=== PATIENT | male | born 1970 | race Asian ===

== ENCOUNTER 2022-04-13 08:58 | Outpatient (CLI) | payer BC, SELFPAY ==
[2022-04-13 09:08] LABS: Hematocrit 40.8 % (37.0-53.0); Hemoglobin* 13.6 gm/dL (13.5-17.5); Mean Corpuscular HGB Conc 33 gm/dL (32-36); Mean Corpuscular Hemoglobin 28 pg (26-34); Mean Corpuscular Volume 83 fL (80-100); Platelet Count* 249 K/uL (140-440); White Blood Count* 5.35 K/uL (4.50-11.00)
[2022-04-13 09:09] LABS: Slide Review Reflex No
[2022-04-13 13:59] LABS: Creatinine Urine 65.1 mg/dL
[2022-04-13 14:02] LABS: Microalbumin Creatinine Ratio 10 mg/g (0-30); Microalbumin Urine < 1 mg/dL
[2022-04-13 14:11] LABS: Albumin* 4.8 g/dL (3.3-5.0); Chloride* 106 mmol/L (96-114); Sodium* 141 mmol/L (135-149)
[2022-04-13 14:12] LABS: Potassium* 4.4 mmol/L (3.6-5.1)
[2022-04-13 14:13] LABS: Cholesterol* 148 mg/dL (90-199)
[2022-04-13 14:14] LABS: Alanine Aminotransferase* 52 U/L (4-50); Alkaline Phosphatase* 67 U/L (40-150); Aspartate Amino Transferase* 35 U/L (12-35); Bilirubin Total* 0.7 mg/dL (0.1-1.5); Blood Urea Nitrogen* 14 mg/dL (7-30); Carbon Dioxide* 26 mmol/L (20-32); Creatinine* 0.8 mg/dL (0.5-1.5); Estimated Glomerular Filt Rate 107 ml/min; Glucose* 95 mg/dL (60-115); Total Protein* 7.2 g/dL (6.0-8.3); Triglycerides* 72 mg/dL (40-149)
[2022-04-13 14:15] LABS: Calcium* 9.2 mg/dL (8.4-10.6); HDL Cholesterol* 60 mg/dL (>=40); LDL Cholesterol Calculated 74 mg/dL (<100)
== END 2022-04-13 08:59 | disposition home or self-care (01) ==
PROVIDERS: PCP Family Medicine; Visit Provider Family Medicine
DX: E78.5 Hyperlipidemia, unspecified (principal); K21.9 Gastro-esophageal reflux disease without esophagitis; R03.0 Elevated blood-pressure reading, without diagnosis of hypertension
CPT/HCPCS: 80053; 80061; 82043; 82570; 85027

== ENCOUNTER 2023-05-19 08:19 | Outpatient (CLI) | payer BC, SELFPAY ==
--- OUTSIDE RECORDS SUMMARY | 2023-05-19 08:25 | XMS_ITS | Encounter Summary ---
Author Name Unknown Organization [place] Address [address] [place] [id number] Care Team Providers Care Lsw Name Role Phone [facility] Primary Care Provider Encounter Details Date Type Department Care Team (Latest Contact Info) Description 07/29/2022 Travel Social History Tobacco Use Types Packs/Day Years Used Date Smoking Tobacco: Never Assessed Sex and Gender Information Value Date Recorded Sex Assigned at Not on file Gender Identity Not on file Sexual Orientation Not on file COVID-19 Exposure Response Date Recorded In the last 10 days, have yo u been in contact with someone who was confirmed or suspected to have Coronavirus/COVID-19? No / Unsure 07/29/2022 11:20 AM CDT documented as of this encounter Plan of Treatment Not on file documented as of this encounter Visit Diagnoses Not on filedocumented in this encounter Care Teams Lsw Relationship Specialty Start Date End Date [facility] [address] [place] [id number] PCP - General 07/29/22 documented as of this encounter
--- OUTSIDE RECORDS SUMMARY | 2023-05-19 08:25 | XMS_ITS | Clinical Summary ---
Author Name Unknown Organization [place] Address [address] [place] [id number] Care Team Providers Care Hospice Nurse Name Role Phone Clinic, [facility] Primary Care Provider Allergies No known active allergies Social History Tobacco Use Types Packs/Day Years Used Date Smoking Tobacco: Never Assessed Adolescent Education Answer Date Record ed Getting School Help Needed Not on file 01/21 Sex and Gender Information Value Date Recorded Sex Assigned at Not on file Gender Identity Not on file Sexual Orientation Not on file Last Filed Vital Signs Vital Sign Reading Time Taken Comments Blood Pressure 153/98 07/29/2022 11:33 AM CDT Pulse 94 07/29/2022 11:33 AM CDT Temperature 36.6 ??C (97.8 ??F) 07/29/2022 11:33 AM C DT Respiratory Rate 16 07/29/2022 11:33 AM CDT Oxygen Saturation 98% 07/29/2022 11:33 AM CDT Inhaled Oxygen Concentration - - Weight - - Height - - Body Mass Index - - Plan of Treatment Health Maintenance Due Date Last Done Comments ADVANCE CARE PLANNING 1970 ANNUAL REVIEW OF HM ORDERS 1970 CT COLONOGRAPHY 1970 FIT 1970 FLEX SIG 1970 HEPATITIS B IMMUNIZATION (1 of 3 - 3-dose series) 1970 YEARLY PREVENTIVE VISIT 1970 sDNA (Cologuard) 1970 HIV SCREENING 1985 HEPATITIS C SCREENING 1988 DTAP/TDAP/TD IMMUNIZATION (1 - Tdap) 11/23/1995 LIPID 2005 ZOSTER IMMUNIZATION (1 of 2) 2020 COVID-19 Vaccine () 12/23/2022 05/24/2022, 10/21/2021, 02/27/2021, Additional history exists INFLUENZA VACCINE (#1) 2022 2, 01/26/2021, 12/23/2020, Additional history exists PHQ-2 (once per calendar year) 2023 COLONOSCOPY 08/06/2029 08/07/2019 COLORECTAL CANCER SCREENING 08/06/2029 HPV IMMUNIZATION Aged Out No longer e ligible based on patient's age to complete this topic IPV IMMUNIZATION Aged Out No longer e ligible based on patient's age to complete this topic MENINGITIS IMMUNIZATION Aged Out No l onger eligible based on patient's age to complete this topic Pneumococcal Vaccine: Pediatrics (0 to 5 Years) and At-Risk Patients (6 to 64 Years) Aged Out No longer eligible based on patient's age to complete this topic RSV MONOCLONAL ANTIBODY Aged Out No l onger eligible based on patient's age to complete this topic Care Teams Hospice Nurse Relationship Specialty Start Date End Date Clinic, [address] [phone] PCP - General 07/29/22
--- OUTSIDE RECORDS SUMMARY | 2023-05-19 08:25 | XMS_ITS | Referral Summary ---
Author Name Unknown Organization [place] Address [address] [place] [id number] Care Team Providers Care Instructor Product Inspection Name Role Phone [facility] Primary Care Provider Allergies No known active [...] Mass Index - - Plan of Treatment Not on file Care Teams Instructor Product Inspection Relationship Specialty Start Date End Date [facility] [address] [place] [id number] [facility] - General 07/29/22
--- OUTSIDE RECORDS SUMMARY | 2023-05-19 08:25 | XMS_ITS | Encounter Summary ---
Author Name Unknown Organization [facility] Address [address] [place] [address] Care Team Providers Care Guidance And Control System Engineer Name Role Phone Clinic, [facility] Primary Care Provider Encounter Details Date Type Department Care Team (Late st Contact Info) Description 07/29/2022 6:14 PM CDT - 07/29/2022 7:58 PM CDT Emergency [facility] Emergency Dept [address] [place] [id number] Lenora Gray MD [facility] [address] [place] [address] Chest pain, unspecified type; Epigastric pain; Gastroesophageal reflux disease, unspecified whether esophagitis present Discharge Disposition: Home or Self Care Social History Tobacco Use Types Packs/Day Years [...] AM CDT documented as of this encounter Last Filed Vital Signs Vital Sign Reading Time Taken Comments Blood Pressure 153/98 07/29/2022 11:33 AM CDT Pulse 94 07/29/2022 11:33 AM CDT Temperature 36.6 ??C (97.8 ??F) 07/29/2022 11:33 AM C DT Respiratory Rate 16 07/29/2022 11:33 AM CDT Oxygen Saturation 98% 07/29/2022 11:33 AM CDT Inhaled Oxygen Concentration - - Weight - - Height - - Body Mass Index - - documented in this encounter Discharge Instructions * Discharge Instructions* Pamela Aldana PA-C - 07/29/2022 7:12 PM CDT We will call you if other labs come back abnormal Continue Nexium for at least 2 weeks, Tums and Pepcid as needed Follow up with primary care in 1 week (phone number provided for [facility]) Follow up with GI as needed for further evaluation and possible endoscopy * Attachments The following attachments cannot be sent through Care Everywhere. * GERD (Adult) (Luxembourger) documented in this encounter ED Notes * Abby Wu RN - 07/29/2022 7:56 PM CDT Pt declined refuset and vitals prior to discharge. * Carey Johnston RN - 07/29/2022 11:33 AM CDT Pt reports midsternal chest pain x1 week. Pt reports that he has been taking nexium which seems to help the pain. Pt reports that he has been experiencing this pain for several months, he stopped taking the nexium because his PCP told him to stop it and pain returned. Pt has seen [facility] for this painand was told he had reflux, but he has not had an endoscopy. Pt alert and oriented. pt adds that he also feels lightheaded at times, but he has not passed out. * Pamela Aldana PA-C - 07/29/2022 11:20 AM CDT History Chief Complaint: Abdominal and Chest Pain The history is provided by the patient. Pritesh Light is a 51 year old male with a history of reflux disease who presents with epigastric abdominal and slight chest pain for the past 10 days intermittently. Patient reports he has had consistent reflux symptoms for the past 6 to 8 months and he has been taking Nexium for it. He saw his PCP in April, who recommend he wean himself off of it. He was feeling very well 2 weeks ago, andthen a few days later he developed new abdominal cramping in the epigastric region. He thought it was maybe the Nexium, so he stopped taking it, but his symptoms worsened. He took Nexium again today to try to help. He is very worried about the pain, and endorses he was hyperventilating a bit on theway here, very worried something was really wrong. Denies fevers, vomiting, diarrhea, or bloody stools. Reports he has been burping a lot and had a decreased appetite. He has seen [facility] in [facility] but has never had an endoscopy. Denies shortness of breath, recent surgery or travel, or trauma. Independent Historian: None - Patient Only Review of External Notes: None ROS: Review of Systems Constitutional: Positive for appetite change. Negative for fever. Respiratory: Negative for shortness of breath. Cardiovascular: Positive for chest pain. Gastrointestinal: Positive for abdominal pain. Negative for blood in stool, diarrhea and vomiting. All other systems reviewed and are negative. Allergies: No Known Allergies Medications: Flonase Prednisone Simvastatin Solifenacin Past Medical History: Denies past medical history Past Surgical History: Sperm duct removal Social History: Presents alone PCP: No primary care provider on file. Physical Exam Patient Vitals for the past 24 hrs: BP Temp Temp src Pulse Resp SpO2 07/29/22 1133 (!) 153/98 97.8 ??F (36.6 ??C) Temporal 94 16 98 % Physical Exam Vital signs and nursing notes reviewed. General: Alert and oriented, no acute distress. Sitting on bench. Skin: Skin is warm and dry. No rashes, lesions, or erythema. No diaphoresis. HEENT: Head: Normocephalic, atraumatic. Facial features symmetric. Eyes: Conjunctiva pink, sclera white. EOMs grossly intact. Ears: Auricles without lesion, erythema, or edema. Nose: Symmetric with no discharge. Mouth and throat: Lips are moist with no lesions or edema, Buccal mucosa and tongue is pink and moist without lesions or exudate. Neck: Normal range of motion. No tracheal deviation. CV: Heart RRR with no murmurs or extra heart sounds. 2+ radial and tibialis posterior pulses bilaterally. No peripheral edema. Pulm/Chest: Chest wall expansion symmetric with no increased effort of breathing. Lungs clear and equal to auscultation bilaterally. Abd: Bowel sounds present and physiologic. Abdomen is soft and nontender to palpation in all 4 quadrants with no guarding or rebound. M/S: Moves all extremities spontaneously. Psych: Normal mood and affect. Behavior is normal. Emergency Department Course ECG ECG results from 07/29/22 EKG 12-lead, tracing only Value Systolic Blood Pressure Diastolic Blood Pressure Ventricular Rate 105 Atrial Rate 105 HI Interval 182 QRS Duration 102 QT 348 QTc 459 P Plato 56 R AXIS 60 T Plato 40 Interpretation ECG Sinus tachycardia Otherwise normal ECG No previous ECGs available Imaging: Chest XR, PA & LAT Final Result IMPRESSION: There are no acute infiltrates. The cardiac silhouette is not enlarged. Pulmonary vasculature is unremarkable. JULISSA CONDE MD Report per radiology Laboratory: Labs Ordered and Resulted from Time of ED Arrival to Time of ED Departure BASIC METABOLIC PANEL - Abnormal Result Value Sodium 142 Potassium 4.2 Chloride 104 Carbon Dioxide (CO2) 26 Anion Gap 12 Urea Nitrogen 17.0 Creatinine 0.96 Calcium 9.5 Glucose 101 (*) GFR Estimate >90 TROPONIN T, HIGH SENSITIVITY - Normal Troponin T, High Sensitivity 7 CBC WITH PLATELETS AND DIFFERENTIAL WBC Count 5.7 RBC Count 4.99 Hemoglobin 13.8 Hematocrit 42.1 MCV 84 MCH 27.7 MCHC 32.8 RDW 11.8 Platelet Count 256 % Neutrophils 63 % Lymphocytes 29 % Monocytes 7 % Eosinophils 1 % Basophils 0 % Immature Granulocytes 0 NRBCs per 100 WBC 0 Absolute Neutrophils 3.5 Absolute Lymphocytes 1.7 Absolute Monocytes 0.4 Absolute Eosinophils 0.1 Absolute Basophils 0.0 Absolute Immature Granulocytes 0.0 Absolute NRBCs 0.0 LIPASE HEPATIC FUNCTION PANEL Emergency Department Course & Assessments: Interventions: Medications lidocaine (viscous) (XYLOCAINE) 2 % 15 mL, alum & mag hydroxide-simethicone (MAALOX) 15 mL GI Cocktail (30 mLs Oral $Given 07/29/22 1850) Assessments: 1834 I obtained history and examined the patient, as above. 1915 I rechecked the patient and updated them on findings. Amenable to discharge. Independent Interpretation (X-rays, CTs, rhythm strip): I reviewed the CXR and appreciated no acute pathology. Consultations/Discussion of Management or Tests: None Social Determinants of Health affecting care: None Disposition: The patient was discharged to home. Impression & Plan [facility] Diagnoses: None Medical Decision Making: Pritesh Light is a 51 year old male who presents for evaluation of epigastric discomfort and substernal CP. See HPI. VSS. Patient does have significant history of Reflux Disease. His presentationand findings are consistent with this. ACS was considered, however ECG showed no signs of acute ischemic injury or infarct. Troponin is 7, and his pain has been present for ~1 week; I highly doubt myocardial injury at this time. Pulmonary Embolism was considered, however he is not hypoxic, dyspneic, and he does not have pleuritic chest pain, and therefore PE is very unlikely. CBC and BMP were unremarkable. Lipase and LFTs normal. Exam was benign and therefore I doubt sinister intra- abdominal etiology of symptoms. His history of belching and improvement with PPI is consistent with an exacerbation of the patient's GERD. Encouraged him to resume Nexium and take Tums and/or Maalox as needed. Recommended follow-up with primary care in approximately 1 week as well as possible appointment with GI as he has not seen them in some time. Instructed patient to return to the emergency department should he develop shortness of breath, chest pain, intractable vomiting, fever, or worsening symptoms of any kind. Patient can discharge home at the time is agreeable to plan. I staffed this patient with Dr. Gray who is agreeable to the assessment and plan above. Critical Care time: was 0 minutes for this patient excluding procedures. Diagnosis: ICD-10-CM 1. Chest pain, unspecified type R07.9 2. Epigastric pain R10.13 3. Gastroesophageal reflux disease, unspecified whether esophagitis present K21.9 Scribe Disclosure: I, Sue Mendoza, am serving as a scribe at 6:33 PM on 07/29/2022 to document services personally performed by Pamela Aldana PA-C based on my observations and the provider's statements to me. Pamela Aldana PA-C on 07/29/2022 at 10:44 PM Pamela Aldana PA-C 07/29/22 [id number] * Lenora Gray MD - 07/29/2022 11:20 AM CDT ED ATTENDING PHYSICIAN NOTE: I evaluated this patient in conjunction with Pamela Aldana PA-C I have participated in the care ofthe patient and personally performed weeks elements of the history, exam, and medical decision making. HPI: Pritesh Light is a 51 year old male who presents with epigastric pain and chest pain for the past 10 days. Pain has been intermittent. He states that he has had reflux symptoms over the past 6-8 months and has been using Nexium. He notes that he stopped the Nexium about two weeks ago, which then made his symptoms worse, so he took it today. No fever, vomiting, diarrhea or blood in stools. He has been belching a large amount and has decreased appetite. Independent Historian: None - Patient Only Review of External Notes: None EXAM: Gen: alert HEENT: PERRL, oropharynx clear Neck: normal ROM CV: RRR, no murmurs, 2+ distal pulses in all 4 extremities Chest: no tenderness over the chest wall Pulm: breath sounds equal, lungs clear Abd: Soft, mild epigastric tenderness Back: no evidence of injury MSK: no lower extremity edema, no calf tenderness Skin: no rash Neuro: alert, appropriate conversation and interaction Assessments: 1900 I obtained history and examined the patient, as above. Amenable to discharge. ECG ECG taken at 1124, ECG read at 1852 Sinus tachycardia Rate 105 bpm. HI interval 182 ms. QRS duration 102 ms. QT/QTc 348/459 ms. P-R-T axes 56 60 40. Independent Interpretation (X-rays, CTs, rhythm strip): None Consultations/Discussion of Management or Tests: None Social Determinants of Health affecting care: None MEDICAL DECISION MAKING/ASSESSMENT AND PLAN: Pritesh Light is a 51 year old male who presents with chest pain. The work up in the Emergency Department is negative. I considered a broad differential diagnosis in this patient including life-threatening etiologies such as acute coronary syndrome, myocardial infarction, pulmonary embolism, acute aortic dissection, myocarditis, pericarditis, acute valvular insufficiency amongst others. Othercauses considered for this patient included pneumonia, pneumothorax, chest wall source, pericarditis, pleurisy, esophageal spasm, etc. No serious etiology for the chest pain were detected today during this visit. Likely this is exacerbation of the patient's GERD. Recommended resume Nexium. Tums or Maalox as needed. Follow-up closely with primary care. Return for new or worsening symptoms. DIAGNOSIS: ICD-10-CM 1. Chest pain, unspecified type R07.9 2. Epigastric pain R10.13 3. Gastroesophageal reflux disease, unspecified whether esophagitis present K21.9 DISPOSITION: The patient was discharged to home. Scribe Disclosure: I, Sue Mendoza, am serving as a scribe at 6:55 PM on 07/29/2022 to document services personally performed by Lenora Gray MD based on my observations and the provider's statements to me. Lenora Gray MD 07/29/2022 [facility] EMERGENCY DEPT Lenora Gray MD 07/29/222137 documented in this encounter Plan of Treatment Not on file documented as of this encounter Procedures Procedure Name Priority Date/Time Associated Diagnosis Comments XR CHEST 2 VIEWS STAT 07/29/2022 3:24 PM CDT EXTRA TUBE STAT 07/29/2022 12:20 PM CDT EXTRA RED TOP TUBE STAT 07/29/2022 12 :20 PM CDT EXTRA BLUE TOP TUBE STAT 07/29/2022 1 2:20 PM CDT CBC WITH PLATELETS AND DIFFERENTIAL STAT 07/29/2022 12:20 PM CDT TROPONIN T, HIGH SENSITIVITY STAT 07/29/2022 12:20 PM CDT CBC WITH PLATELETS & DIFFERENTIAL STAT 07/29/2022 12:20 PM CDT LIPASE Add-On 07/29/2022 12:20 PM CDT HEPATIC FUNCTION PANEL Add-On 07/29/2022 12:20 PM CDT BASIC METABOLIC PANEL STAT 07/29/2022 12:20 PM CDT EKG 12-LEAD, TRACING ONLY STAT 07/29/2022 11:24 AM CDT documented in this encounter Results * Chest XR, PA & LAT (07/29/2022 3:24 PM CDT) Anatomical Region Laterality Modality Chest Computed Radiogr aphy Impressions 07/29/2022 3:55 PM CDT IMPRESSION: There are no acute infiltrates. The cardiac silhouette is not enlarged. Pulmonary vasculature is unremarkable. JULISSA CONDE MD Narrative 07/29/2022 3:55 PM CDT CHEST TWO VIEWS 07/29/2022 3:24 PM HISTORY: Chest pain. COMPARISON: None. Procedure Note Julissa Conde MD - 07/29/2022 CHEST TWO VIEWS 07/29/2022 3:24 PM HISTORY: Chest pain. COMPARISON: None. IMPRESSION: There are no acute infiltrates. The cardiac silhouette is not enlarged. Pulmonary vasculature is unremarkable. JULISSA CONDE MD Lenora Gray MD IMG DIAG NOSTIC IMAGING ORDERABLES * Hepatic panel (07/29/2022 12:20 PM CDT) Protein Total 7.2 6.4 - 8.3 g/dL 07/29/2022 7:32 PM CDT [facility] Albumin 4.8 3.5 - 5.2 g/dL 07/29/2022 7:32 PM CDT [facility] Bilirubin Total 0.3 <=1.2 mg/dL 07/29/2022 7:32 PM CDT [facility] Alkaline Phosphatase 74 40 - 129 U/L 07/29/2022 7:32 PM CDT [facility] AST 31 10 - 50 U/L 07/29/2022 7:32 PM CDT [facility] ALT 36 10 - 50 U/L 07/29/2022 7:32 PM CDT [facility] Bilirubin Direct <0.20 0.00 - 0.30 mg/dL 07/29/2022 7:32 PM CDT [facility] Blood STRUCTURE OF RIGHT UPPER LIMB / Unknown Venipuncture / Unknown 07/29/2022 12:20 PM CDT 07/29/2022 12:36 PM CDT Pamela Aldana PA-C LAB - BLOOD ORDERA BLES Performing Organization Address City/[facility]/ZIP Co de Phone Number [facility] [address] Lab (1st floor, no room number) [place] [id number], [facility] [phone] * Lipase (07/29/2022 12:20 PM CDT) Lipase 22 13 - 60 U/L 07/29/2022 7:32 PM CDT [facility] Blood STRUCTURE OF RIGHT UPPER LIMB / Unknown Venipuncture / Unknown 07/29/2022 12:20 PM CDT 07/29/2022 12:36 PM CDT Pamela Aldana PA-C LAB - BLOOD ORDERA BLES Performing Organization Address [facility]/ZIP Co de Phone Number [facility] [address] Lab (1st floor, no room number) [place] [id number], [facility] [phone] * Extra Red Top Tube (07/29/2022 12:20 PM CDT) Hold Specimen JIC 07/29/2022 1:47 PM CDT [facility] Blood STRUCTURE OF RIGHT UPPER LIMB / Unknown Venipuncture / Unknown 07/29/2022 12:20 PM CDT 07/29/2022 12:36 PM CDT Lenora Gray MD LAB - BL OOD ORDERABLES [facility] Lab [address] Lab (1st floor, no room number) [place] [address], [facility] [phone] * Extra Blue Top Tube (07/29/2022 12:20 PM CDT) Hold Specimen JIC 07/29/2022 1:47 PM CDT [facility] Blood STRUCTURE OF RIGHT UPPER LIMB / Unknown Venipuncture / Unknown 07/29/2022 12:20 PM CDT 07/29/2022 12:36 PM CDT Lenora Gray MD LAB - BL OOD ORDERABLES LABORATORY [facility] Acute Care Lab [address] Lab (1st floor, no room number) [place] [address], [facility] [phone] * CBC with platelets and differential (07/29/2022 12:20 PM CDT) WBC Count 5.7 4.0 - 11.0 10e3/uL 07/29/2022 12:50 PM CDT [facility] RBC Count 4.99 4.40 - 5.90 10e6/uL 07/29/2022 12:50 PM CDT [facility] Hemoglobin 13.8 13.3 - 17.7 g/dL 07/29/2022 12:50 PM CDT [facility] Hematocrit 42.1 40.0 - 53.0 % 07/29/2022 12:50 PM CDT [facility] MCV 84 78 - 100 fL 07/29/2022 12:50 PM CDT [facility] MCH 27.7 26.5 - 33.0 pg 07/29/2022 12:50 PM CDT [facility] MCHC 32.8 31.5 - 36.5 g/dL 07/29/2022 12:50 PM CDT [facility] RDW 11.8 10.0 - 15.0 % 07/29/2022 12:50 PM CDT [facility] Platelet Count 256 150 - 450 10e3/uL 07/29/2022 12:50 PM CDT [facility] % Neutrophils 63 % 07/29/2022 12:50 PM CDT [facility] % Lymphocytes 29 % 07/29/2022 12:50 PM CDT [facility] % Monocytes 7 % 07/29/2022 12:50 PM CDT [facility] % Eosinophils 1 % 07/29/2022 12:50 PM CDT [facility] % Basophils 0 % 07/29/2022 12:50 PM CDT [facility] % Immature Granulocytes 0 % 07/29/2022 12:50 PM CDT [facility] NRBCs per 100 WBC 0 <1 /100 023 12:50 PM CDT [facility] Absolute Neutrophils 3.5 1.6 - 8.3 10e3/uL 07/29/2022 12:50 PM CDT [facility] Absolute Lymphocytes 1.7 0.8 - 5.3 10e3/uL 07/29/2022 12:50 PM CDT [facility] Absolute Monocytes 0.4 0.0 - 1.3 10e3/uL 07/29/2022 12:50 PM CDT [facility] Absolute Eosinophils 0.1 0.0 - 0.7 10e3/uL 07/29/2022 12:50 PM CDT [facility] Absolute Basophils 0.0 0.0 - 0.2 10e3/uL 07/29/2022 12:50 PM CDT [facility] Absolute Immature Granulocytes 0.0 <=0.4 10e3/uL 07/29/2022 12:50 PM CDT [facility] Absolute NRBCs 0.0 10e3/uL 07/29/2022 12:50 PM CDT [facility] Blood STRUCTURE OF RIGHT UPPER LIMB / Unknown Venipuncture / Unknown 07/29/2022 12:20 PM CDT 07/29/2022 12:36 PM CDT Lenora Gray MD LAB - BL OOD ORDERABLES [facility] Lab [address] Lab (1st floor, no room number) [place] [address], [place] [phone] * Troponin T, High Sensitivity (now) (07/29/2022 12:20 PM CDT) Troponin T, High Sensitivity 7 <=22 ng/L 07/29/2022 1:20 PM CDT [facility] Comment: Either a High Sensitivity Troponin T baseline (0 hours) value = 100 ng/L, or an increase in High Sensitivity Troponin T = 7 ng/L at 2 hours compared to 0 hours (2-0 hours), suggests myocardial injury, and urgent clinical attention is required. ?? If the 2-0 hours increase is <7 ng/L, a High Sensitivity Troponin T result above gender-specific reference ranges warrants further evaluation. Recommendations for further evaluation include correlation with clinical decision-making tool (e.g., HEART), a 3rd High Sensitivity Troponin T test 2 hours after the 2nd (a 20% change from baseline would represent concern), admission for observation, close PCC/cardiology follow-up, or urgent outpatient provocative testing. Blood STRUCTURE OF RIGHT UPPER LIMB / Unknown Venipuncture / Unknown 07/29/2022 12:20 PM CDT 07/29/2022 12:36 PM CDT Lenora Gray MD LAB - BL OOD ORDERABLES LABORATORY [facility] Acute Care Lab [address] Lab (1st floor, no room number) [place] [address], [facility] [phone] * (ABNORMAL) Basic metabolic panel (BMP) (07/29/2022 12:20 PM CDT) [facility] Sodium 142 136 - 145 mmol/L 07/29/2022 2:06 PM CDT LABORATORY Potassium 4.2 3.4 - 5.3 mmol/L 07/29/2022 2:06 PM CDT LABORATORY Chloride 104 98 - 107 mmol/L 07/29/2022 2:06 PM CDT LABORATORY Carbon Dioxide (CO2) 26 22 - 29 mmol/L 07/29/2022 2:06 PM CDT LABORATORY Anion Gap 12 7 - 15 mmol/L 07/29/2022 2:06 PM CDT LABORATORY Urea Nitrogen 17.0 6.0 - 20.0 mg/dL 07/29/2022 2:06 PM CDT [facility] Creatinine 0.96 0.67 - 1.17 mg/dL 07/29/2022 2:06 PM CDT [facility] Calcium 9.5 8.6 - 10.0 mg/dL 07/29/2022 2:06 PM CDT [facility] Glucose 101(H) 70 - 99 mg/dL 07/29/2022 2:06 PM CDT [facility] GFR Estimate >90 >60 mL/min/1.7 3m2 07/29/2022 2:06 PM CDT [facility] Comment:eGFR calculated usin 2020 CKD-EPI equation. Blood STRUCTURE OF RIGHT UPPER LIMB / Unknown Venipuncture / Unknown 07/29/2022 12:20 PM CDT 07/29/2022 12:36 PM CDT Lenora Gray MD LAB - BL OOD ORDERABLES LABORATORY [facility] Acute Care Lab [address] Lab (1st floor, no room number) [place] [address] [phone] * EKG 12-lead, tracing only (07/29/2022 11:24 AM CDT) Systolic Blood Pressure mmHg RADIOLOGY RESULTS Diastolic Blood Pressure mmHg RADIOLOGY RESULTS Ventricular Rate 105 BPM RAD IOLOGY RESULTS Atrial Rate 105 BPM RADIOLOG Y RESULTS HI Interval 182 ms RADIOLOG Y RESULTS QRS Duration 102 ms RADIOLO GY RESULTS QT 348 ms RADIOLOGY RESULTS QTc 459 ms RADIOLOGY RESULTS P Plato 56 degrees RADIOLOGY RESULTS R AXIS 60 degrees RADIOLOGY RESULTS T Plato 40 degrees RADIOLOGY RESULTS Interpretation ECG Sinus tachycardia Otherwise normal ECG No previous ECGs available RADIOLOGY RESULTS 07/29/2022 11:2 4 AM CDT 07/29/2022 11:38 AM CDT Lenora Gray MD ECG ORDE RABLES RADIOLOGY RESULTS documented in this encounter Visit Diagnoses Diagnosis Chest pain, unspecified type Epigastric pain Abdominal pain, epigastric Gastroesophageal reflux disease, unspecified whether esophagitis present documented in this encounter Administered Medications Inactive Administered Medications - up to 3 most recent administrations Medication Order MAR Action Action Date Dose Rate Site lidocaine (viscous) (XYLOCAINE) 2 % 15 mL, alum & mag hydroxide-simethicone (MAALOX) 15 mL GI Cocktail 30 mL, Oral, ONCE, On Mon07/29/22 at 1850, For 1 dose $Given 07/29/2022 6:50 PM CDT 30 mLs documented in this encounter Active and Recently Administered Medications Times are shown in CDT. Scheduled Medication Order 07/27/2022 07/28/2022 07/29/2022 lidocaine (viscous) (XYLOCAINE) 2 % 15 mL, alum & mag hydroxide-simethicone (MAALOX) 15 mL GI Cocktail (COMPLETED) 30 mL, Oral, ONCE, On Mon07/29/22 at 1850, For 1 dose 1850 ($Given - Provi yeimy: Lety Deng RN) documented in this encounter Care Teams Guidance And Control System Engineer Relationship Specialty Start Date End Date [facility], [address] [address] PCP - General 07/29/22 documented as of this encounter
== END 2023-05-19 08:20 | disposition home or self-care (01) ==
PROVIDERS: PCP Family Medicine; Visit Provider Physician Assistant Medical
DX: R10.9 Unspecified abdominal pain (principal); E78.5 Hyperlipidemia, unspecified
CPT/HCPCS: 80053; 80061; 82465

== ENCOUNTER 2023-05-30 07:20 | Outpatient (CLI) | payer BC, SELFPAY ==
--- OUTSIDE RECORDS SUMMARY | 2023-05-31 10:52 | XMS_ITS | Encounter Summary ---
Author Name Unknown Organization [facility] Address [address] [place] [id number] Care Team Providers Care Dock Supervisor Name Role Phone [facility] Primary Care Provider Encounter Details Date [...] on filedocumented in this encounter Care Teams Dock Supervisor Relationship Specialty Start Date End Date [facility] [address] [place] [address] PCP - General 07/29/22 documented as of this encounter
--- OUTSIDE RECORDS SUMMARY | 2023-05-31 10:52 | XMS_ITS | Clinical Summary ---
Author Name Unknown Organization [facility] Address [address] [place] [address] Care Team Providers Care Insole Channeler Name Role Phone Clinic, [facility] Primary Care Provider Allergies No known active [...] DTAP/TDAP/TD IMMUNIZATION (1 - Tdap) 11/23/1995 LIPID 2010 ZOSTER IMMUNIZATION (1 of 2) 2020 COVID-19 Vaccine (6 - 2023-24 season) 2022 05/24/2022, 10/21/2021, 02/27/2021, Additional history exists INFLUENZA VACCINE (#1) 2022 2, 01/26/2021, 12/23/2020, Additional history exists PHQ-2 (once per calendar year) 2023 GLUCOSE 07/29/2025 07/29/2022 COLONOSCOPY 08/06/2029 08/07/2019 COLORECTAL CANCER SCREENING 08/06/2029 [...] age to complete this topic Care Teams Insole Channeler Relationship Specialty Start Date End Date [facility], [address] [address] PCP - General 07/29/22
--- OUTSIDE RECORDS SUMMARY | 2023-05-31 10:52 | XMS_ITS | Referral Summary ---
Author Name Unknown Organization [place] Address [address] [place] [address] Care Team Providers Care Lease Examiner Name Role Phone [facility] Primary Care Provider Allergies No known active [...] of Treatment Not on file Care Teams Lease Examiner Relationship Specialty Start Date End Date [facility] [address] [place] [address] [facility] - General 07/29/22
--- OUTSIDE RECORDS SUMMARY | 2023-05-31 10:52 | XMS_ITS | Encounter Summary ---
Author Name Unknown Organization [place] Address [address] [place] [address] Care Team Providers Care Sheather Name Role Phone Clinic, [facility] Primary Care Provider Encounter Details Date Type Department Care Team (Late st Contact Info) Description 07/29/2022 6:14 PM CDT - 07/29/2022 7:58 PM CDT Emergency [facility] Emergency Dept [address] [place] [phone] Lenora Gray MD [facility] [address] [place] [address] Chest pain, unspecified type; Epigastric pain; Gastroesophageal [...] in 1 week (phone number provided for [facility]) Follow up with GI as needed for further evaluation and possible endoscopy * Attachments The following attachments cannot be sent through Care Everywhere. * GERD (Adult) ([place] Citizen) documented in this encounter ED Notes * [...] it and pain returned. Pt has seen [facility] for this painand was told he had [...] had a decreased appetite. He has seen [place] [facility] in [facility] but has never had an endoscopy. Denies [...] Pressure Ventricular Rate 105 Atrial Rate 105 NV Interval 182 QRS Duration 102 QT 348 QTc 459 P Morgan 56 R AXIS 60 T Morgan 40 Interpretation ECG Sinus tachycardia Otherwise normal [...] was discharged to home. Impression & Plan [facility] Diagnoses: None Medical Decision Making: Pritesh Light [...] at 10:44 PM Pamela Aldana PA-C 07/29/22 0989 * Lenora Gray MD - 07/29/2022 11:20 [...] at 1852 Sinus tachycardia Rate 105 bpm. NV interval 182 ms. QRS duration 102 ms. [...] statements to me. Lenora Gray MD 07/29/2022 [facility] EMERGENCY DEPT Lenora Gray MD 07/29/222137 documented [...] - BLOOD ORDERA BLES Performing Organization Address City/[facility] [place]/ZIP Co de Phone Number [facility] [address] Lab (1st floor, no room number) [place] [phone], [facility] [phone] * Lipase (07/29/2022 12:20 PM CDT) Lipase 22 13 - 60 U/L 07/29/2022 7:32 PM CDT [facility] Blood STRUCTURE OF RIGHT UPPER LIMB / Unknown Venipuncture / Unknown 07/29/2022 12:20 PM CDT 07/29/2022 12:36 PM CDT Pamela Aldana PA-C LAB - BLOOD ORDERA BLES Performing Organization Address [facility] [place]/ZIP Co de Phone Number [facility] [address] Lab (1st floor, no room number) [place] [phone], [facility] [phone] * Extra Red Top Tube (07/29/2022 12:20 PM CDT) Hold Specimen JIC 07/29/2022 1:47 PM CDT [facility] Blood STRUCTURE OF RIGHT UPPER LIMB / Unknown Venipuncture / Unknown 07/29/2022 12:20 PM CDT 07/29/2022 12:36 PM CDT Lenora Gray MD LAB - BL OOD ORDERABLES [facility] Acute Care Lab [address] Lab (1st floor, no room number) [place] [address], [facility] [phone] * Extra Blue Top Tube (07/29/2022 12:20 PM CDT) Hold Specimen JIC 07/29/2022 1:47 PM CDT [facility] Blood STRUCTURE OF RIGHT UPPER LIMB / Unknown Venipuncture / Unknown 07/29/2022 12:20 PM CDT 07/29/2022 12:36 PM CDT Lenora Gray MD LAB - BL OOD ORDERABLES LABORATORY [facility] Acute Care Lab [address] Lab (1st floor, no room number) [place] [address], [facility] [phone] * CBC with platelets and differential (07/29/2022 [...] LAB - BL OOD ORDERABLES [facility] Acute Care Lab [address] Lab (1st floor, no room number) [place] [address], [place] [phone] * Troponin T, High Sensitivity (now) (07/29/2022 [...] MD LAB - BL OOD ORDERABLES LABORATORY [facility] Acute Care Lab [address] Lab (1st floor, no room number) [place] [address], [facility] [phone] * (ABNORMAL) Basic metabolic panel (BMP) (07/29/2022 12:20 PM CDT) [facility] Sodium 142 136 - 145 mmol/L 07/29/2022 [...] MD LAB - BL OOD ORDERABLES LABORATORY [facility] Acute Care Lab [address] Lab (1st floor, no room number) [place] [address] [phone] * EKG 12-lead, tracing only (07/29/2022 11:24 AM CDT) Systolic Blood Pressure mmHg RADIOLOGY RESULTS Diastolic Blood Pressure mmHg RADIOLOGY RESULTS Ventricular Rate 105 BPM RAD IOLOGY RESULTS Atrial Rate 105 BPM RADIOLOG Y RESULTS NV Interval 182 ms RADIOLOG Y RESULTS QRS Duration 102 ms RADIOLO GY RESULTS QT 348 ms RADIOLOGY RESULTS QTc 459 ms RADIOLOGY RESULTS P Morgan 56 degrees RADIOLOGY RESULTS R AXIS 60 degrees RADIOLOGY RESULTS T Morgan 40 degrees RADIOLOGY RESULTS Interpretation ECG Sinus [...] RN) documented in this encounter Care Teams Sheather Relationship Specialty Start Date End Date [facility], [address] [address] PCP - General 07/29/22 documented as of this encounter
== END 2023-05-30 07:21 | disposition home or self-care (01) ==
LOC: NFLDREF 05-31 10:42
PROVIDERS: PCP Family Medicine; Referring Provider Family Medicine; Visit Provider Family Medicine
DX: E78.5 Hyperlipidemia, unspecified (principal)
CPT/HCPCS: 80061

== ENCOUNTER 2023-11-26 09:13 | Emergency (ER) | payer BC, SELFPAY ==
[2023-11-26 09:29] VITALS: BP 137/98; PULSE 87; RESP 18; TEMP 36.4; O2SAT 98; BMI 25.8
[2023-11-26 10:00] VITALS: BP 132/87; PULSE 80; RESP 16; O2SAT 96
--- OUTSIDE RECORDS SUMMARY | 2023-11-26 10:11 | XMS_ITS | Continuity of Care Document ---
Author Organization [facility] Address [address] [address] [place] [address] Phone Care Team Providers Care Informatics Nurse Specialist Name Role Phone Alisha Caldera CRNA Unavailable Unavailable Allergies, Adverse Reactions, Alerts Substance Reaction Status Criticality No Known Allergies Active No Inform ation Medications Medication Instructions Dosage Effective Dates (start - stop) Status Comments Vesicare 5 mg tablet take 1 tablet by oral route every day 5 MG - Active simvastatin 20 mg tablet take 1 tablet by oral route every day in the evening 20 MG - Active NEXIUM (unknown strength) take 1 capsule by oral route every day Not Available - Active Procedures Procedure Date Ugi Endo; Dx W/wo Collec Specm 23 Established Level 4 Offic/outpt E&m [facility] Advance Directives Directive Yes / No Effective Date File Name No Information Encounters Encounter Description Practice Location Reason(s) For Visit Diagnoses Date Provider Providers Copied on Encounter [facility] [place], [address] [address], [place], [id number], [place] tel:[phone] [facility] No Information 3 Werner Brito. [address] [facility], [facility] [address], [place], [id number] , [place]. tel:[phone] Referring Provider: Nadeen Choi, [address] [facility] [address], [place], [address] . tel:[phone] [facility] [place], [address] [address], [place], [id number], [place] tel:[phone] [facility] GI Symptoms or Concerns (chief complaint) Chronic GERDUnspecified abdominal painHeartburnHeartb urn 3 Yesenia Senior. [address] [facility] [address], [address], [place], [id number] , [place]. tel: [phone] Established Level 4 [facility], [address] [address], [place], [id number], [place] tel:[phone] [facility] GI Symptoms or Concerns (chief complaint) Chronic GERD 3 Hardy Mota. [address] [facility] [address], [address], [place], [id number] , [place]. tel: [phone] Referring Provider: Referral Self, USE FOR SELF REFERRALS. [facility], [address] [address], [place], [id number], [place] tel:[phone] [facility] GI Symptoms or Concerns (chief complaint) No Information 3 Hardy Mota. [address] [facility], [address], [place], [id number] , [place]. tel: [phone] Offic/outpt E&m [facility], [address] [address], [place], [id number], [place] tel:[phone] [facility] GI Symptoms or Concerns (chief complaint) Gastroesophageal reflux disease, unspecified whether esophagitis present 1 Vinita Wallace . [address] [facility] [address], [address], [place], [id number] , [place]. tel: [phone] [facility], [address] [address], [place], [id number], [place] tel:[phone] [facility] No Information 1 Zahra Ricci. [address] [facility] [address], [address], [place], [place], [id number] , [place]. tel: [phone] Family History Family Member Type Diagnosis Age At Onset No Information Immunizations Vaccine Date Status Comments SARS-COV-2 (COVID-19) vaccin e, mRNA, spike protein, LNP, bivalent booster, preservative free, 30 mcg/0.3 mL dose, nathan-sucrose formulation administered Note: [facility] bi-d irectional interface ; Source: Other Registry Seasonal, quadrivalent, recombinant, injectable influenza vaccine, preservative free administered Note: [facility] bi-direct ional interface ; Source: Other Registry SARS-COV-2 (COVID-19) vaccin e, mRNA, spike protein, LNP, preservative free, 30 mcg/0.3mL dose, nathan-sucrose formulation administered Note: M[facility] C bi- directional interface ; Source: Other Registry SARS-COV-2 (COVID-19) vaccin e, mRNA, spike protein, LNP, preservative free, 30 mcg/0.3mL dose administered Note: [facility] bi-direct ional interface ; Source: Other Registry Influenza administered Note: [facility] bi-d irectional interface ; Source: Other Registry SARS-COV-2 (COVID-19) vaccin e, mRNA, spike protein, LNP, preservative free, 30 mcg/0.3mL dose administered Note: [facility] bi-direct ional interface ; Source: Other Registry SARS-COV-2 (COVID-19) vaccin e, mRNA, spike protein, LNP, preservative free, 30 mcg/0.3mL dose administered Note: [facility] bi-direct ional interface ; Source: Other Registry Afluria Qd administered Note: M [facility] bi-directional interface ; Source: Other Registry Influenza administered Note: [facility] bi-d irectional interface ; Source: Other Registry Influenza administered Note: [facility] bi-d irectional interface ; Source: Other Registry Afluria Qd administered Note: M [facility] bi-directional interface ; Source: Other Registry Influenza administered Note: [facility] bi-d irectional interface ; Source: Other Registry Influenza, seasonal, injectable administe red Note: [facility] bi- directional interface ; Source: Other Registry Influenza, seasonal, injecta ble, preservative free administered Note: [facility] bi-direct ional interface ; Source: Other Registry Novel [id number], all formulations administered Note: [facility] bi-direct ional interface ; Source: Other Registry Influenza, seasonal, injecta ble, preservative free administered Note: [facility] bi-direct ional interface ; Source: Other Registry Payers Payer name Insurance type Covered green party ID Authorlucya eileen(s) [employer] [facility] [id number] Social History Type Description Quantity Date Captured Comments Sex Male Smoking Status No Information Chief Complaint And Reason For Visit No Information Reason For Referral Reason For Referral No Information Plan Of Treatment Date Type Action Status Referral Ordered: EGD Appointment date/timeframe: 08/25/2022 ordered History Of Present Illness Encounter Date Complaint History Of Prese nt Illness GI Symptoms or Concerns GI Symptoms or Concerns This is a very pleasant 51 year old man consents for a virtual follow up of GERD. Patient was last seen in our practice in 2020. Patient reports a long standing history of GERD. He takes OTC Nexium 20 mg daily with adequate control of his heartburn. However, symptoms recur as soon as he stops taking Nexium. His PCP recently suggested that patient gets off Nexium concerning for the jail side effects. About a week later, patient has experienced heartburn associated with chest pain. His symptoms have worsened that brought the patient to seek medical attention at the ER. He underwent labs, EKG and CXR - all normal per patient. Patient was advised to follow up with GI. He denies dysphagia or odynophagia. No nausea or vomiting. Patient has experienced bloating and gas associated with burping and epigastric discomfort. Patient is pretty regular. He has one BM daily of normal stool. No blood in the stool. Weight is stable. He did take NSAID several times for Migraine just before his symptoms worsened. No family history of GI illnesses. Patient had colonoscopy two years ago which was normal per patient. He does not drink alcohol. He does not do recreational drugs. GI Symptoms or Concerns GI Symptoms or Concerns This is a 50-year-old man who presents as a referral from Paulo Norton regarding reflux symptoms. In about August or September of this year, he ate a Sub sandwich. He had immediate postprandial borborygmi and heartburn. There is even some dysphagia. He tried taking famotidine twice daily without significant improvement. In the past, he had felt that ranitidine was more effective for him, but this was unavailable. He then tried Prilosec for 2 weeks, which did improve symptoms. However, symptoms recurred after discontinuation. He tried Nexium, which also helped, but he felt crampy when taking it. He again only took that for about 2 weeks. Symptoms returned when he stopped the Nexium and so he started famotidine 20 mg twice daily. This has led to improvement in symptoms, but his stomach still does not feel settled. He feels worse in the morning and then symptoms improve with breakfast. He has a sense of gassiness and the need to burp through the day. He reports a negative gallbladd Functional Status Date Functional Assessmen t No Information Instructions Date Instruction Additional Infor mation No Information Assessments Type Assessment Date No Information Patient Care Teams Name Effective Dates (start - stop) Status Members No Information
--- OUTSIDE RECORDS SUMMARY | 2023-11-26 10:11 | XMS_ITS | Referral Summary ---
Author Organization [place] Address [address] [place] [address] Care Team Providers Care Elevator Operator Service Name Role Phone Clinic, [facility] Primary Care Provider Allergies No known [...] - Plan of Treatment Not on file Procedures Procedure Name Priority Date/Time Associated Diagnosis Comments BASIC METABOLIC PANEL STAT 07/29/2022 12:20 PM CDT from Last 3 Months or Most Recently Relevant to Health Maintenance Results * (ABNORMAL) Basic metabolic panel (BMP) (07/29/2022 12:20 PM CDT) Sodium 142 136 - 145 mmol/L 07/29/2022 2:06 PM CDT LABORATORY Potassium 4.2 3.4 - 5.3 mmol/L 07/29/2022 2:06 PM CDT LABORATORY Chloride 104 98 - 107 mmol/L 07/29/2022 2:06 PM CDT [facility] Carbon Dioxide (CO2) 26 22 - 29 mmol/L 07/29/2022 2:06 PM CDT [facility] Anion Gap 12 7 - 15 mmol/L 07/29/2022 2:06 PM CDT [facility] Urea Nitrogen 17.0 6.0 - 20.0 [...] MD LAB - BL OOD ORDERABLES LABORATORY [facility] Acute Care Lab [address] Lab (1st floor, no room number) [place] [address], [facility] [phone] from Last 3 Months or Most Recently Relevant to Health Maintenance Care Teams Elevator Operator Service Relationship Specialty Start Date End Date Clinic, [address] [address] [facility] - General 07/29/22
--- OUTSIDE RECORDS SUMMARY | 2023-11-26 10:11 | XMS_ITS | Clinical Summary ---
Author Organization [place] Address [address] [place] [address] Care Team Providers Care Pest Control Technician Name Role Phone [facility], [facility] Primary Care Provider Allergies No known active [...] COLONOGRAPHY 1970 FIT 1970 FLEX SIG 1970 YEARLY PREVENTIVE VISIT 1970 sDNA (Cologuard) 1970 HIV SCREENING 1985 HEPATITIS C SCREENING 1988 HEPATITIS B IMMUNIZATION (1 of 3 - 19+ 3-dose series) 1989 DTAP/TDAP/TD IMMUNIZATION (1 - Tdap) 11/23/1995 LIPID 2010 ZOSTER IMMUNIZATION (1 of 2) 2020 COVID-19 Vaccine ( - 2023-24 season) 2022 05/24/2022, 10/21/2021, 02/27/2021, Additional history exists PHQ-2 (once per calendar year) 2023 INFLUENZA VACCINE (#1) 2023 2, 01/26/2021, 12/23/2020, Additional history exists GLUCOSE 07/29/2025 07/29/2022 COLONOSCOPY 08/06/2029 08/07/2019 COLORECTAL [...] on patient's age to complete this topic Procedures Procedure Name Priority Date/Time Associated Diagnosis Comments BASIC METABOLIC PANEL STAT 07/29/2022 12:20 PM CDT from Last 3 Months or Most Recently Relevant to Health Maintenance Results * (ABNORMAL) Basic metabolic panel (BMP) (07/29/2022 12:20 PM CDT) Sodium 142 136 - 145 mmol/L 07/29/2022 2:06 PM CDT [facility] Potassium 4.2 3.4 - 5.3 mmol/L 07/29/2022 2:06 PM CDT [facility] Chloride 104 98 - 107 mmol/L [...] - 10.0 mg/dL 07/29/2022 2:06 PM CDT LABORATORY Glucose 101(H) 70 - 99 mg/dL 07/29/2022 2:06 PM CDT [facility] GFR Estimate >90 >60 mL/min/1.7 3m2 07/29/2022 2:06 PM CDT [facility] Comment:eGFR calculated usin 2020 CKD-EPI equation. Blood STRUCTURE OF RIGHT UPPER LIMB / Unknown Venipuncture / Unknown 07/29/2022 12:20 PM CDT 07/29/2022 12:36 PM CDT Lenora Gray MD LAB - BL OOD ORDERABLES LABORATORY [facility] Acute Care Lab [address] Lab (1st floor, no room number) [place] [address], [facility] [phone] from Last 3 Months or Most Recently Relevant to Health Maintenance Care Teams Pest Control Technician Relationship Specialty Start Date End Date [facility], [address] [address] PCP - General 07/29/22
--- OUTSIDE RECORDS SUMMARY | 2023-11-26 10:12 | XMS_ITS | Continuity of Care Document ---
Author Organization [facility], [facility] Address [address] [place] [address] [address] [place] [address] Care Team Providers Care Printer Apprentice Name Role Phone SOUSACARLOS Primary Care Provider [phone] Assessment No assessment recorded. Plan of Treatment Reminders Order Date Submit Date Provider Last Modified By Organization Details Last Modified Time Details Appointments None recorded. Lab urinalysis, dipstick 2023 024 [facility], [address] [facility], [address], [place], [address], 4 09:20:04 urinalysis, microscopic 2023 024 [facility], [address] [facility], [address], [place], [address], 4 09:14:47 Referral None recorded. Procedures None recorded. Surgeries None recorded. Imaging None recorded. Medication Orders None recorded. Patient TargetsNo targets recorded. Patient InstructionsNo instructions recorded. Reason for Referral None Reported. Problems Name Status Onset Date Resolution Date Notes Provider Name and Address Organization Details Recorded Time Gastroesophageal reflux disease Active 024 London Meath null, [facility] 4 13:08:43 Hypercholesterolemia Active 024 London Meath null, [facility] 4 13:08:49 Hypertensive disorder Active 024 London Meath null, [facility] 4 13:08:55 Increased frequency of urination Active 024 London Meath null, [facility] 4 13:09:11 Problem Notes None recorded. Procedures Surgical History Date Name Laterality Status Provider Name and Address Organization Details Recorded Time 09/21/19 Bladder Scan completed London Cuello null, [facility] 09/21/2023 09:14:53 09/14/19 24 Blood Draw/NETWORKER/PSA RESULTS completed Augustine Narvaez null, [facility] 09/14/2023 09:16:06 09/15/19 Blood Draw/NETWORKER/PSA RESULTS completed Anabela Hobbs null, [facility] 09/14/2021 09:33:50 08/07/19 20 Colonoscopy completed London Beckettmaxx null, [facility] 09/15/2023 13:09:35 09/11/19 19 Us urine capacity measure completed Not Available Health Note 09/12/2021 19:34:04 11/24/19 16 Us urine capacity measure completed Not Available Health Note 09/12/2021 19:34:04 08/21/19 16 Ligation of sperm duct completed Not Available Health Note 09/12/2021 19:34:04 08/02/19 15 Us urine capacity measure completed Not Available Health Note 09/12/2021 19:34:04 Prp i/sharath init reduc >5 yr completed Not Available Health Note 09/12/2021 19:34:04 Removal of sperm duct(s) completed Not Available Health Note 09/12/2021 19:34:04 Diagnostic colonoscopy completed Not Available Health Note 09/17/2023 09:35:22 Imaging Results None recorded. Procedure Notes None recorded. Medical Equipment None Reported. Allergies No known drug allergies Medications Name Sig Start Date Stop Date Status Note LastModified by Organization Details LastModified Time diltiazem 2% ointment APPLY PEA SIZED AMOUNT TO ANUS 2-3 TIMES DAILY FOR 6-8 WEEKS active Not Available Not Available No t Available prednison e 20 mg tablet 09/20 completed HN: Patient reports no longer taking Not Available Not Available Not Available clobetaso l 0.05 % topical gel APPLY AND GENTLY MASSAGE INTO AFFECTED AREAS TWICE DAILY 09/20 completed HN: Patient reports no longer taking Not Available Not Available Not Available simvastat in 20 mg tablet TAKE ONE TABLET BY MOUTH ONE TIME DAILY* active Not Available Not Available No t Available lisinopri l 10 mg tablet TAKE ONE TABLET BY MOUTH ONE TIME DAILY active Not Available Not Available No t Available omeprazol e 20 mg capsule,d elayed release TAKE ONE CAPSULE BY MOUTH ONE TIME DAILY 09/20 completed HN: Patient reports no longer taking Not Available Not Available Not Available ipratropi um bromide 42 mcg (0.06 %) nasal spray USE 2 SPRAYS IN EACH NOSTRIL THREE TIMES A DAY 09/20 completed HN: Patient reports no longer taking Not Available Not Available Not Available cefdinir 300 mg capsule Take 1 capsule (300 mg) by mouth twice a day* 09/14 completed Not Available Not Available Not Available fluticaso ne propionat e 50 mcg/actua tion nasal spray,ranjit pension USE 1 SPRAYS IN EACH NOSTRIL TWO TIMES A DAY DIRECTED 09/20 completed HN: Patient reports no longer taking Not Available Not Available Not Available ipratropi um bromide 21 mcg (0.03 %) nasal spray PLACE 2 SPRAYS IN EACH NOSTRIL THREE TIMES DAILY 09/20 completed HN: Patient reports no longer taking Not Available Not Available Not Available esomepraz ole magnesium 20 mg capsule,d elayed release TAKE ONE CAPSULE BY MOUTH EVERY DAY active Not Available Not Available No t Available solifenac in 5 mg tablet TAKE ONE TABLET BY MOUTH ONE TIME DAILY active Not Available Not Available No t Available Vitals Date Recorded Body weight Body height Body mass index (BMI) Provider Name and Address Organization Details Last Updated DateTime 09/21/2023 79770.61575 44988 g 180.34 cm 25.8 kg/m2 Not Available Health Note 09/21/2023 09:05:22 Social History Question Answer Notes LastModified by Organizat ion Details LastModified Time Tobacco Smoking Status Former Smoker Not Available Health Note 09/17/2023 09:35:22 What Is Your Level Of Alcohol Consumption? Occasional Information not available 09/21/2023 What Is Your Level Of Caffeine Consumption? Moderate [email or web address] Information not available 09/17/2023 How Much Tobacco Do You Chew? None [email or web address] Information not available 09/17/2023 Do You Or Have You Ever Used E-cigarettes Or Vape? Current User Of Electronic Cigarettes [email or web address] Information not available 09/17/2023 When Did You Quit Smoking? 1-5yearssincel iban Information not available 09/21/2023 Race White; Or Information not available 10/03/2019 Marital Status Informati on not available 10/03/2019 What Was The Date Of Your Most Recent Tobacco Screening? 09/21/2023 [email or web address] Information not available 09/17/2023 Have You Ever Been Counseled For Unhealthy Alcohol Use? Yes Information not available 09/21/2023 What Is Your Relationship Status? [email or web address] Information not available 09/17/2023 Are You Sexually Active? Yes [email or web address] Information not available 09/17/2023 Do You Or Have You Ever Used Smokeless Tobacco? Never Used Smokeless Tobacco [email or web address] Information not available 09/17/2023 How Much Tobacco Do You Smoke? 0.5 PPD [email or web address] Information not available 09/12/2021 Do You Use Any Illicit Or Recreational Drugs? No [email or web address] Information not available 09/17/2023 Has Tobacco Cessation Counseling Been Provided? Yes Information not available 09/21/2023 On What Date Was Tobacco Cessation Counseling Provided? 09/21/2023 Information not available 09/21/2023 How Many Years Have You Smoked Tobacco? 20 [email or web address] Information not available 09/17/2023 Do You Or Have You Ever Used Any Other Forms Of Tobacco Or Nicotine? Yes Information not available 09/21/2023 How Many Days In The Past Year Have You Consumed 5 Or More Drinks? 3 [email or web address] Information no t available 09/17/2023 Sex: Unknown Functional Status None recorded. Mental Status None recorded. Family History Relationship Description Onset Age of this Age Resolved Age Notes Father Heart disease Medical History Condition Response Diabetes N Sexually Transmitted Infection N Bleeding Disorder N High Blood Pressure Y Kidney Stones N Cancer N Depression N Lung Disease N High Cholesterol N GERD/Acid Reflux N Heart Disease N Immunizations Vaccine Type Date Status Provider Name and Address Organization Details Recorded Time Influenza, split virus, quadrivalent, preservative 01/16/2018 completed London Meath null, [facility] 09/15/2023 13:09:44 Influenza, split virus, quadrivalent, preservative 01/17/2017 completed London Meath null, [facility] 09/15/2023 13:09:44 Influenza, split virus, quadrivalent, preservative 01/20/2015 completed London Meath null, [facility] 09/15/2023 13:09:44 Influenza, split virus, quadrivalent, preservative 01/26/2021 completed London Meath null, [facility] 09/15/2023 13:09:44 COVID-19, mRNA, LNP-S, PF, 30 mcg/0.3 mL dose 07/08/2020 completed London Meath null, [facility] 09/15/2023 13:09:44 COVID-19, mRNA, LNP-S, PF, 30 mcg/0.3 mL dose 07/30/2020 completed London Meath null, [facility] 09/15/2023 13:09:44 COVID-19, mRNA, LNP-S, PF, 30 mcg/0.3 mL dose 02/27/2021 completed London Meath null, [facility] 09/15/2023 13:09:44 Novel [id number], all formulations 05/19/2009 completed London Meath null, [facility] 09/15/2023 13:09:45 Influenza, split virus, trivalent, preservative 01/16/2014 completed London Meath null, [facility] 09/15/2023 13:09:45 Influenza, split virus, trivalent, PF 02/03/2009 completed London Meath null, [facility] 09/15/2023 13:09:45 Influenza, split virus, trivalent, PF 02/09/2012 completed London Meath null, [facility] 09/15/2023 13:09:45 Influenza, split virus, quadrivalent, PF 12/10/2018 completed London Meath null, [facility] 09/15/2023 13:09:45 Influenza, split virus, quadrivalent, PF 01/28/2020 completed London Meath null, [facility] 09/15/2023 13:09:45 Influenza, split virus, quadrivalent, PF 02/14/2016 completed London Meath null, [facility] 09/15/2023 13:09:45 Influenza, recombinant, quadrivalent, PF 02/13/2022 completed London Meath null, [facility] 09/15/2023 13:09:51 zoster recombinant 08/04/2023 completed London Meath null, [facility] 09/15/2023 13:09:51 zoster recombinant 01/12/2023 completed London Meath null, [facility] 09/15/2023 13:09:51 COVID-19, mRNA, LNP-S, PF, 30 mcg/0.3 mL dose, nathan-sucrose 10/21/2021 completed London Meath null, [facility] 09/15/2023 13:09:51 COVID-19, mRNA, LNP-S, bivalent, PF, 30 mcg/0.3 mL dose 05/24/2022 completed London Meath null, [facility] 09/15/2023 13:09:51 COVID-19, mRNA, LNP-S, PF, 50 mcg/0.5 mL 03/11/2023 completed London Meath null, [facility] 09/15/2023 13:09:51 Influenza, split virus, quadrivalent, PF 01/12/2023 completed London Meath null, [facility] 09/15/2023 13:09:51 SARS-COV-2 (COVID-19) vaccine, UNSPECIFIED 01/06/2023 completed Not Available Health Note 09/17/2023 09:35:26 influenza, unspecified formulation 01/06/2023 completed Not Available Health Note 09/17/2023 09:35:26 zoster live 08/07/2023 completed Not Available Health Note 0 09/17/2023 09:35:26 influenza, unspecified formulation 12/23/2020 completed London Meath null, [facility] 09/15/2023 13:09:44 SARS-COV-2 (COVID-19) vaccine, UNSPECIFIED 02/27/2021 completed London Meath null, [facility] 09/15/2023 13:09:44 Past Encounters Encounter ID Performer Location Encounter Start Date Encounter Closed Date Diagnosis/Indication Diagnosis SNOMED-CT Code [id number] Augustine roman [address] [facility],[address] [address] 09/14/2023 09:13:11 09/14/2023 09:16:54 Screening for malignant neoplasm of prostate [id number] Wayne Reza MD Mireya roman [address] [facility],[address] [address] 09/21/2023 09:04:42 09/22/2023 09:37:52 Increased frequency of urination [id number] Screening for malignant neoplasm of prostate [id number] Health Concerns Section Related Observation LastModified by Organization Detai ls LastModified Time None Recorded Concern Status LastModified by Organization Details LastModified Time None Recorded Payers Encounter Date Sequence Insurance Name Policy Number Policy Salcedo Covered Member ID Salcedo Member ID Guarantor Name 09/21/2023 1 [place] [id number] [facility] [id number] [facility] Notes Date Note Type Note Provider Name and Address Organization Details Recorded Time 09/21/2023 text/html HPI Notes: urgency. intense. continues vesicare. No incontinence. He describes overall his symptoms have been largely stable. He is returning for 2-year follow-up and he has been stable on the current so Fenesin medication. prostate cancer screening. psa 0.46. Generally feeling well. Continence Function Questionnaire: [3] Urinary control: Frequent dribbling [5] Leaked urine: Several times a day [2] How big of a problem urinary function has been: Very small problem Wayne Reza MD [address] [facility],[place] [address], [place], [address], [facility] 09/21/2023 20:09:41
--- OUTSIDE RECORDS SUMMARY | 2023-11-26 10:12 | XMS_ITS | Continuity of Care Document ---
Author Organization [facility] Address [address] [facility] [address] [place] [address] Care Team Providers Care Supervisor Cigar Making Machine Name Role Phone CARLOS SOUSA Primary Care Provider [phone] Assessment No assessment recorded. Plan of Treatment Reminders Order Date Submit Date Provider Last Modified By Organization Details Last Modified Time Details Appointments None recorded. Lab prostate specific Ag, serum or plasma 2023 024 [facility], [address] [place] [address], [address], [place], [address], 4 14:40:44 Referral None recorded. Procedures None recorded. Surgeries None recorded. Imaging None recorded. Medication Orders None recorded. Patient TargetsNo targets recorded. Patient InstructionsNo instructions recorded. Reason for Referral None Reported. Problems Name Status Onset Date Resolution Date Notes Provider Name and Address Organization Details Recorded Time Gastroesophageal reflux disease Active 024 London felder [facility] 4 13:08:43 Hypercholesterolemia Active 024 London Meath null [facility] 4 13:08:49 Hypertensive disorder Active 024 London Meath null [facility] 4 13:08:55 Increased frequency of urination Active 024 London felder [facility] 4 13:09:11 Problem Notes None recorded. Procedures Surgical History Date Name Laterality Status Provider Name and Address Organization Details Recorded Time 09/21/19 Bladder Scan completed London felder [facility] 09/21/2023 09:14:53 05/23/20 24 Blood Draw/DIAMOND SORTER/PSA RESULTS completed Augustine Narvaez null, [facility] 09/14/2023 09:16:06 09/15/19 22 Blood Draw/DIAMOND SORTER/PSA RESULTS completed Anabela Hobbs null, [facility] 09/14/2021 09:33:50 08/07/19 20 Colonoscopy completed London Cuello null, [facility] 09/15/2023 13:09:35 09/11/19 19 Us urine capacity [...] Available Not Available No t Available Vitals None Recorded Social History Question Answer Notes LastModified by [...] 09/17/2023 When Did You Quit Smoking? 1-5yearssincel astcigarette Information not available 09/21/2023 Race White; Or [email or web address] Information not available 10/03/2019 Marital Status [email or web address] Informati on not available 10/03/2019 What Was [...] Father Heart disease Medical History Condition Response High Blood Pressure Y Kidney Stones N Depression N Lung Disease N GERD/Acid Reflux N Sexually Transmitted Infection N Diabetes N Bleeding Disorder N Cancer N High Cholesterol N Heart Disease N Immunizations Vaccine Type Date Status Provider Name and Address Organization Details Recorded Time Influenza, split virus, quadrivalent, preservative 01/16/2018 completed London felder [facility] 09/15/2023 13:09:44 Influenza, split virus, quadrivalent, preservative 01/17/2017 completed London felder [facility] 09/15/2023 13:09:44 Influenza, split virus, quadrivalent, preservative 01/20/2015 completed London felder [facility] 09/15/2023 13:09:44 Influenza, split virus, quadrivalent, preservative 01/26/2021 kaycee felder [facility] 09/15/2023 13:09:44 COVID-19, mRNA, LNP-S, PF, 30 mcg/0.3 mL dose 07/08/2020 completed Lnodon Meath null, [facility] 09/15/2023 13:09:44 COVID-19, mRNA, LNP-S, PF, 30 mcg/0.3 mL dose 07/30/2020 completed London Meath null, [facility] 09/15/2023 13:09:44 COVID-19, mRNA, LNP-S, PF, 30 mcg/0.3 mL dose 02/27/2021 completed London Meath null, [facility] 09/15/2023 13:09:44 Novel [id number], all formulations 05/19/2009 completed London Meath null, [facility] 09/15/2023 13:09:45 Influenza, split virus, trivalent, preservative 01/16/2014 completed London Meath null, [facility] 09/15/2023 13:09:45 Influenza, split virus, trivalent, PF 02/03/2009 completed London Meath null, [facility] 09/15/2023 13:09:45 Influenza, split virus, trivalent, PF 02/09/2012 completed London Meath null, [facility] 09/15/2023 13:09:45 Influenza, split virus, quadrivalent, PF 12/10/2018 completed London Meath null, [facility] 09/15/2023 13:09:45 Influenza, split virus, quadrivalent, PF 01/28/2020 completed London Meath null, [facility] 09/15/2023 13:09:45 Influenza, split virus, quadrivalent, PF 02/14/2016 completed London Meath null, [facility] 09/15/2023 13:09:45 Influenza, recombinant, quadrivalent, PF 02/13/2022 completed London Meath null, [facility] 09/15/2023 13:09:51 zoster recombinant 08/04/2023 completed London Meath null, [facility] 09/15/2023 13:09:51 zoster recombinant 01/12/2023 completed London Meath null, [facility] 09/15/2023 13:09:51 COVID-19, mRNA, LNP-S, PF, 30 mcg/0.3 mL dose, nathan-sucrose 10/21/2021 completed London Meath null, [facility] 09/15/2023 13:09:51 COVID-19, mRNA, LNP-S, bivalent, PF, 30 mcg/0.3 mL dose 05/24/2022 completed London Meath null, [facility] 09/15/2023 13:09:51 COVID-19, mRNA, LNP-S, PF, 50 mcg/0.5 mL 03/11/2023 completed London Meath null, [facility] 09/15/2023 13:09:51 Influenza, split virus, quadrivalent, PF 01/12/2023 completed London Meath null, [facility] 09/15/2023 13:09:51 SARS-COV-2 (COVID-19) vaccine, UNSPECIFIED 01/06/2023 completed Not Available Health Note 09/17/2023 09:35:26 influenza, unspecified formulation 01/06/2023 completed Not Available Health Note 09/17/2023 09:35:26 zoster live 08/07/2023 completed Not Available Health Note 0 09/17/2023 09:35:26 influenza, unspecified formulation 12/23/2020 completed London Meath null, [facility] 09/15/2023 13:09:44 SARS-COV-2 (COVID-19) vaccine, UNSPECIFIED 02/27/2021 completed London Meath null, [facility] 09/15/2023 13:09:44 Past Encounters Encounter ID Performer Location Encounter Start Date Encounter Closed Date Diagnosis/Indication Diagnosis SNOMED-CT Code [id number] Augustine leger [address] [place] [id number] 09/14/2023 09:13:11 09/14/2023 09:16:54 Screening for malignant neoplasm of prostate [id number] Health Concerns Section Related Observation LastModified by Organization Detai ls LastModified Time None Recorded Concern Status LastModified by Organization Details LastModified Time None Recorded Payers Encounter Date Sequence Insurance Name Policy Number Policy Salcedo Covered Member ID Salcedo Member ID Guarantor Name 09/14/2023 1 SID-[employer]: SID BARBOZA (PPO) [id number] Kati Light [id number] Pritesh Light
--- NOTE | 2023-11-26 10:23 | ED_ITS ---
HPI - General Adult General Chief complaint: Shortness of Breath/Dyspnea Stated complaint: Hx of acid reflux, SOB Time Seen by Provider: 11/26/23 09:41 Source: patient Mode of arrival: ambulatory Limitations: no limitations History of Present Illness HPI narrative: 53-year-old male presenting today with epigastric discomfort, bloating, burning sensation. Patient does have a history of reflux and does state that reflux intensity does increase and decrease periodically. He presents today to make sure that his symptoms are not related to his heart as his father from coronary artery disease in his 40s. Patient states that this started yesterday in the afternoon. He went to the gym and worked out the mode the lawn. He states that while working out he felt really good. No issues while mowing the lawn. It was afterwards that the sensation of bloating and burning discomfort in the epigastric started. He does take Nexium once a day. He has been told in the past he can increase this to twice a day but has not done so yet. He did go to the store yesterday and by Myl[employer], he stated that after taking the Mylanta his symptoms improved significantly. Patient is not short of breath. He denies pain in his chest. Related Data Home Medications ?Medication ?Instructions ?Recorded ?Confirmed cetirizine 10 mg tablet (All Day 10 mg PO QDAY PRN 06/28/23 11/16/23 Allergy (cetirizine)) esomeprazole magnesium 20 mg 20 mg PO QDAY 06/28/23 11/26/23 capsule,delayed release (Nexium) Previous Rx's ?Medication ?Instructions ?Recorded simvastatin 20 mg tablet 20 mg PO DAILY #90 tabs 05/26/23 solifenacin 5 mg tablet 5 mg PO QDAY #90 tabs 05/26/23 lisinopril 20 1 tab PO QDAY #30 tabs 11/16/23 mg-hydrochlorothiazide 12.5 mg tablet Allergies Allergy/AdvReac Type Severity Reaction Status Date / Time cefdinir Allergy Intermediate Hives Verified 11/26/23 09:29 Review of Systems Status of ROS: Reports: 10 or more systems reviewed and unremarkable except as noted in History and below [facility] Medical History Urticaria ?L50.9 - Urticaria, unspecified (ICD-10) Surgical History History of colonoscopy ?Z98.890 - Other specified postprocedural states (ICD-10) History of esophagogastroduodenoscopy (EGD) ?Z98.890 - Other specified postprocedural states (ICD-10) History of vasectomy ?Z98.52 - Vasectomy status (ICD-10) Family History Father Cardiovascular disease Social History Narrative: does not use illicit drugs occasional alcohol consumption smoker- 10 cigarettes per day What is your current living situation?: I presently have a place to live Problems where you live: no known problems In the past 12 months, utilities in danger of being shut off: no In past 12 months, lack of transportation kept you from medical appts, meetings, work, or getting things needed for daily living: no In the past 12 mos, have been you worried that your food would run out before you had money to buy more?: never true In the past 12 mos, the food you bought just didn't last and you didn't have money to buy more?: never true Smoking Status: Never smoker How often does anyone, including family, friends and others, physically hurt you : never How often does anyone, including family, friends and others, insult or talk down to you: never How often does anyone, including family, friends and others, threaten you with harm: never How often does anyone, including family, friends and others, scream or curse at you: never Little interest or pleasure in doing things: not at all Feeling down, depressed, or hopeless: not at all Exam Narrative: Exam Narrative: Well-nourished well-developed patient in no acute distress. Alert and oriented. Answers questions appropriately. Mood and affect are appropriate. Thoughts are goal oriented and rational. No tangential or magical thinking noted. Patient speaks in full sentences without needing to catch his breath. HEENT: Normocephalic atraumatic. Pupils are equally round reactive to light. Extraocular muscles are intact. Conjunctivae are moist without any icterus noted. Moist mucous membranes. Neck is soft. Cardiovascular: Heart is regular rate and rhythm S1 and S2 are present without any murmurs. Lungs: Clear to auscultation bilaterally no wheezes rhonchi or rales are appreciated. Patient takes deep breaths without any discomfort. Abdomen: Soft and nontender nondistended with normal bowel sounds. No guarding or rebound. No masses or organomegaly appreciated. Negative Teresa sign. Extremities: Bilateral lower extremities are without edema. Normal DP and PT pulses. Skin: Well perfused without any obvious rashes. Multiple tattoos. Const: Vital Signs, click to edit/add: Vital Signs - 24 hr 11/26/23 09:29 Temperature 97.5 F L Pulse Rate [Pulse Oximeter] 87 Respiratory Rate 18 Blood Pressure [Ri t Upper Arm] 137/98 H Pulse Oximetry 98 Oxygen Delivery Me thod Room Air Course Course ED Course: EKG, read by me, shows normal sinus rhythm with a pulse of 82. Point of care troponin was 0. Vital Signs Vital signs: Initial Vital Signs Temperature 97.5 F L 11/26/23 09:29 Temperature Source Temporal Artery Scan 11/26/23 09:29 Pulse Rate 87 11/26/23 09:29 Pulse Rhythm Regular 11/26/23 09:29 Respiratory Rate 18 11/26/23 09:29 Blood Pressure 137/98 H 11/26/23 09:29 Blood Pressure Mean 111 H 11/26/23 09:29 Blood Pressure Position Sitting 11/26/23 09:29 Pulse Oximetry 98 11/26/23 09:29 Oxygen Delivery Method Room Air 11/26/23 09:29 Vital Signs Temperature 97.5 F L 11/26/23 09:29 Pulse Rate 87 11/26/23 09:29 Respiratory Rate 18 11/26/23 09:29 Blood Pressure 137/98 H 11/26/23 09:29 Pulse Oximetry 98 11/26/23 09:29 Oxygen Delivery Method Room Air 11/26/23 09:29 Temperature 97.5 F L 11/26/23 09:29 Pulse Rate 87 11/26/23 09:29 Respiratory Rate 18 11/26/23 09:29 Blood Pressure 137/98 H 11/26/23 09:29 Pulse Oximetry 98 11/26/23 09:29 Oxygen Delivery Method Room Air 11/26/23 09:29 Medical Decision Making MDM Narrative Medical decision making narrative: 53-year-old male with GERD. Discussed increasing Nexium to twice a day, adding famotidine on days that are especially bad. Follow-up as needed. Differential diagnosis considered include coronary artery disease: History of present illness is not consistent with coronary artery disease. Lab Data Lab results reviewed: Yes I reviewed the patient's lab results ECG Data Attestation: I personally reviewed and interpreted this ECG as follows: Discharge Plan Discharge Clinical Impression: Gastroesophageal reflux disease Qualifiers: Esophagitis presence: esophagitis presence not specified Qualified Code(s): K21.9 - Gastro-esophageal reflux disease without esophagitis Patient Disposition: Home, Self-Care Condition: Stable Additional Instructions: Cardiac enzyme levels today, that signify that the heart is under stress, was 0. Symptoms are likely caused by your reflux. Recommend Nexium 2 times per day for the next few weeks. Can add famotidine (Zantac) as needed on days when symptoms are particularly bad. Follow-up with your primary care provider as needed Prescriptions: No Action cetirizine [All Day Allergy (cetirizine)] 10 mg tablet 10 mg PO QDAY PRN esomeprazole magnesium [Nexium] 20 mg capsule,delayed release(DR/EC) 20 mg PO QDAY lisinopril-hydrochlorothiazide 20-12.5 mg tablet 1 tab PO QDAY Qty: 30 0RF solifenacin 5 mg tablet 5 mg PO QDAY Qty: 90 3RF simvastatin 20 mg tablet 20 mg PO DAILY Qty: 90 3RF Follow Up/Referrals: Fatimah Horton PA-C [Primary Care Provider] - Stand Alone Forms: [employer] Info Instructions
[2023-11-26 10:30] VITALS: BP 126/86; PULSE 77; RESP 16; O2SAT 96
== END 2023-11-26 10:37 | disposition home or self-care (01) ==
PROVIDERS: Emergency Provider Family Medicine; PCP Physician Assistant Medical
DX: K21.9 Gastro-esophageal reflux disease without esophagitis (principal)
CPT/HCPCS: 84484; 99283; 99284

== ENCOUNTER 2024-05-27 07:58 | Outpatient (CLI) | payer BC, SELFPAY | END 2024-05-27 07:59 | disposition home or self-care (01) | LOC: NFLDREF 05-29 01:33 | PROVIDERS: PCP Physician Assistant Medical; Referring Provider Physician Assistant Medical; Visit Provider Physician Assistant Medical | DX: I10 Essential (primary) hypertension (principal); E78.2 Mixed hyperlipidemia; N32.81 Overactive bladder; K21.9 Gastro-esophageal reflux disease without esophagitis; Z13.6 Encounter for screening for cardiovascular disorders | CPT/HCPCS: 80053; 80061; 84443 ==